=== PATIENT | female | born 1970 | race Caucasian/White ===

== ENCOUNTER → 2016-11-18 | Outpatient (REF) | payer OTHER ==
[2016-11-18 19:03] LABS: BASO % 0.4 % (0.0-1.0); EOS % 0.8 % (0.0-3.0); LARGE UNSTAINED CELL # 0.1 K/mm3 (0.0-0.4); LARGE UNSTAINED CELL % 1.1 % (0.0-4.0); LYMPH # 0.8 K/mm3 (1.5-4.5); LYMPH % 14.9 % (24.0-44.0); MEAN CORPUSCULAR HGB CONC 34.2 g/dl (32.0-36.5); MEAN CORPUSCULAR VOLUME 93.6 fl (80.0-96.0); MONO # 0.4 K/mm3 (0.0-0.8); NEUTROPHILS # 3.8 K/mm3 (1.8-7.7); NEUTROPHILS % 75.8 % (36.0-66.0); PLATELET COUNT, AUTOMATED 299 k/mm3 (150-450); RED CELL DISTRIBUTION WIDTH 12.8 % (11.5-14.5)
[2016-11-18 19:23] LABS: ALBUMIN 4.1 GM/DL (3.2-5.2); ALBUMIN/GLOBULIN RATIO 1.17 (1.00-1.93); ALKALINE PHOSPHATASE 78 U/L (45-117); ALT/SGPT 22 U/L (12-78); AST/SGOT 21 U/L (15-37); BILIRUBIN,DIRECT 0.1 MG/DL (0.0-0.2); BILIRUBIN,TOTAL 0.4 MG/DL (0.2-1.0); CREATININE FOR GFR 0.69 MG/DL (0.55-1.02); GLOMERULAR FILTRATION RATE > 60.0 (>58); TOTAL PROTEIN 7.6 GM/DL (6.4-8.2)
== END ==
LOC: M LAB REF 17:37
PROVIDERS: ATTEND Internal Medicine Pulmonary Disease
DX: R91.8 Other nonspecific abnormal finding of lung field (principal)

== ENCOUNTER → 2016-11-27 | Outpatient (CLI) | payer OTHER ==
[~2016-11-27] MED LIST: No medications
--- NOTE | 2016-12-01 17:59 | REP ---
CT study of the chest without contrast: History: Abnormal lung field findings. Report was delayed pending retrieval of prior CT study images from [facility] dated October 16, 2016. CT findings: There is a multifocal bilateral pattern of tree in bud opacities central lobular nodules and bahman bronchovascular opacities bilaterally. The changes are not limited to the upper lobes, but are a little more predominant in the upper lobes. No obvious hilar or mediastinal mass lesion is seen. Multiple nodules are observed. There are multiple lymph nodes in the subcarinal, pretracheal, aorticopulmonary window region of the mediastinum. Suspect bilateral hilar adenopathy. Changes are compatible with granulomatous disease such as sarcoidosis as well as other inflammatory conditions. Malignancy is considered less likely. The findings are essentially the same as on October 16, 2016 CT study. Impression: Bilateral innumerable perihilar, bahman bronchovascular opacities and centrilobular nodules. Essentially unchanged from October 16, 2016 prior study. Signed by Matty Alvarez MD 12/01/2016 06:29 P
== END ==
LOC: M RAD 16:08
PROVIDERS: ATTEND Internal Medicine Pulmonary Disease
DX: R91.8 Other nonspecific abnormal finding of lung field (principal)

== ENCOUNTER → 2016-12-01 | Day surgery (SDC) | payer OTHER ==
[~2016-12-01] VITALS: Ht 157.5 cm; Wt 56.7 kg
[~2016-12-01] MED LIST changes: +CETACAINE SPRAY 20GM (FLOOR STOCK) As Ordered ONE; +EPINEPHrine 1MG/10ML SYRINGE 1.5IN As Ordered ONE; +GLYCOPYRROLATE INJ 0.2 MG/ML 2 ML VIAL As Ordered ONE; +HYDROmorphone HCL 1 MG/ML SYRINGE (J1170) IV PRN; +LIDOCAINE 1% SDV INJ 30 ML VIAL As Ordered ONE; +LIDOCAINE 2% INJ 100 MG/5 ML SDV (FOR ANES.) As Ordered ONE; +LIDOCAINE VISCOUS 2% SOLN 15ML UDC As Ordered ONE; +LR 1,000 ML IV SCH; +METOCLOPRAMIDE INJ 10MG/2ML VIAL (J2765) As Ordered ONE; +MIDAZOLAM INJ 2 MG/2 ML VIAL (J2250) As Ordered ONE; +NEOSTIGMINE 1MG/ML 5 ML SYRINGE (J2710) As Ordered ONE; +ONDANSETRON 4MG/2ML VIAL (J2405) As Ordered ONE; +ONDANSETRON 4MG/2ML VIAL (J2405) IV PRN; +PERCOCET 5MG/325MG TAB PO PRN; +PROPOFOL 200 MG/20 ML VIAL As Ordered ONE; +ROCURONIUM BROMIDE 50 MG/5 ML VIAL As Ordered ONE; +SCOPOLAMINE 1.5 MG TRANSDERMAL TOP ONE; +THROMBIN SOLN 20,000 UNITS KIT As Ordered ONE; +dexameTHASONE 4 MG/ML 1ML VIAL (J1100) As Ordered ONE; +fentaNYL 250 MCG/5 ML INJECTION (J3010) As Ordered ONE
--- NOTE | 2016-12-01 10:16 | REP ---
Portable chest: Single view. History: Question pneumothorax. Comparison study: Comparison chest CT study November 27, 2016 Findings: There is no evidence of pneumothorax or hydrothorax. EKG monitoring electrodes and oxygen delivery tubing is seen. There is a hazy opacity in the right perihilar region. Impression: No pneumothorax or other complication identified. Signed by Matty Alvarez MD 12/01/2016 12:08 P
[2016-12-01 10:27] LABS: TNC 33.27 cells/uL (0-20)
[2016-12-01 10:33] LABS: BAL DIFF IF INDICATED? YES (NO); COLOR PINK (COLORLESS)
--- NOTE | 2016-12-01 10:37 | RO ---
DATE OF PROCEDURE: 12/01/2016 PREOPERATIVE DIAGNOSIS: Abnormal chest CT with lung nodules and lymphadenopathy. POSTPROCEDURE DIAGNOSIS: Abnormal chest CT with lung nodules and lymphadenopathy. FINDINGS: Minimal white plaquing in the airway. PROCEDURE: Bronchoscopy with electromagnetic navigation and endobronchial ultrasound, fine needle aspiration. PROCEDURALIST: Dr. Lanza ANESTHESIA: General. ESTIMATED BLOOD LOSS: Was approximately 5 mL. None replaced. No drains. SPECIMENS OBTAINED: 1. Right upper lobe and right lower lobe transbronchial biopsies. 2. Right upper lobe bronchoalveolar lavage. 3. FNA subcarinal node. DESCRIPTION OF PROCEDURE: After informed consent was reviewed with the patient, she was brought back to [facility]. General anesthesia was initiated. She was intubated with an 8.5 endotracheal tube. The Olympus 1T180 scope was then introduced into the airway through the endotracheal tube with Cetacaine spray. All airways were suctioned. There was a thin layer of white mucus on most of the airways with minimal white plaquing. The trachea was straight deviation and no a there was no evidence of deviation. The smooth was sharp. No splaying. Right and left mainstem bronchus was normal except for the secretions as mentioned above. Right RB 1 through 10 was normal without endobronchial lesions. LB 1 through 10 was normal without endobronchial lesions. After adequate viewing of the airways, the navigational guide was then inserted. Automatic registration was performed. The target #1 was easily navigated to. Biopsy was then performed in the form of transbronchial biopsies. After adequate sampling, bronchoalveolar lavage was performed. The target #2 in the right upper lobe apical segment was difficult to obtain as the guide would not come close enough in proximity. Therefore, the navigation was discontinued and I performed random sampling of the right lower lobe in the anterior middle and posterior basal segments, along with the medial basal segment. All transbronchial biopsies were placed in one sample. After hemostasis was assured, The 1t180 bronchoscope was removed. FNA was then performed under of endobronchial ultrasound of the subcarinal node. Right and left hilum were viewed. Although there were very small lymph nodes there, there were large blood vessels blocking the ability to obtain a sample. Therefore, no hilar samples were obtained. Subcarinal samples were obtained suggested initially with on-site cytology of inflammatory tissue. Samples were taken for cell block. After adequate sampling, hemostasis was assured and endobronchial ultrasound was removed. Pictures were taken. The subcarinal node was approximately 1 cm. The hilar nodes were 5 mm each. No node was exceeding 1 cm upon visual inspection. The patient was then extubated and brought to recovery. Chest x-ray is pending. No observed complications. MTDD
[2016-12-01 10:45] VITALS: BP 119/59
[2016-12-01 12:04] LABS: CC BAL DIFF EXAM CYTOCENTRIFUGE
== END | disposition home or self-care (01) ==
LOC: M SDC 06:24 → EDSTATUS 07:30
PROVIDERS: ATTEND Internal Medicine Pulmonary Disease
DX: R91.8 Other nonspecific abnormal finding of lung field (principal); R59.9 Enlarged lymph nodes, unspecified; M32.9 Systemic lupus erythematosus, unspecified; J45.20 Mild intermittent asthma, uncomplicated; L40.50 Arthropathic psoriasis, unspecified; R29.898 Other symptoms and signs involving the musculoskeletal system; R06.83 Snoring; R06.02 Shortness of breath; Z86.19 Personal history of other infectious and parasitic diseases; Z98.51 Tubal ligation status
CPT/HCPCS: 31624; 31627; 31628; 31629; 31654; 71010; 76000; 87070; 87102; 87116; 87205; 87206; 88108; 88172; 88173; 88305; 88312; 88313; 89051; J1100; J2250; J2405; J2710; J2765; J3010